=== PATIENT | male | born 1970 | race Caucasian/White ===

== ENCOUNTER 2017-10-20 10:10 | Outpatient (CLI) | payer OTHER ==
[2017-10-20 11:00] LABS: Hemoglobin 16.5 g/dL (14.0-18.0)
[2017-10-20 11:18] LABS: Anion Gap 10 mmol/L (10-20); BUN (Urea Nitrogen) 16 mg/dL (8.9-20.6); Calc. Creatinine Clearance 0 mL/min (70-130); Calcium 9.9 mg/dL (7.8-10.44); Carbon Dioxide 27 mmol/L (22-29); Chloride 104 mmol/L (98-107); Estimated GFR-MDRD 79; Glucose 86 mg/dL (70-105); Potassium 4.5 mmol/L (3.5-5.1); Sodium 136 mmol/L (136-145)
--- NOTE | 2017-10-24 08:46 | EKG ---
Test Reason : Blood Pressure : / mmHG Vent. Rate : 053 BPM Atrial Rate : 053 BPM P-R Int : 168 ms QRS Dur : 080 ms QT Int : 380 ms P-R-T Axes : 040 036 012 degrees QTc Int : 356 ms Sinus bradycardia Anterior infarct , age undetermined Abnormal ECG No previous ECGs available Confirmed by MARCUS HERNÁNDEZ, AISLINN ([id number]) on 10/24/2017 8:46:14 AM Referred By: PARISA Confirmed By:AISLINN VELAZQUEZ MD
== END 2017-10-20 10:11 | disposition home or self-care (01) ==
LOC: LABBT 10:10
PROVIDERS: ATTEND Orthopaedic Surgery
DX: Z01.818 Encounter for other preprocedural examination (principal); M23.92 Unspecified internal derangement of left knee
CPT/HCPCS: 80048; 85014; 85018; 93005; 93010

== ENCOUNTER 2017-10-27 09:24 | Day surgery (SDC) | payer OTHER ==
[2017-10-20 10:32] VITALS: BMI 27.7
[2017-10-27] MEDS ORDERED: PROPOFOL 20 ML ONE (09:45)
[2017-10-27] MEDS ORDERED: Clindamycin/D5W 600 mg/50 ml Premix Bag ONE (10:31)
[2017-10-27] MEDS ORDERED: Fentanyl 100 MCG/2 ML VIAL ONE (10:58)
[2017-10-27] MEDS ORDERED: Bupivacaine HCl 0.5%/Epinephrine 1:200,000/PF 30 ml Vial ONE (11:35)
[2017-10-27] MEDS ORDERED: Lidocaine 2% w/Epinephrine 1:200K 20 ML VIAL ONE (11:35)
[2017-10-27] MEDS ORDERED: PROPOFOL 200 MG/20 ML VIAL ONE (12:13)
[2017-10-27] MEDS ORDERED: Lidocaine 1% PF 5 ML VIAL ONE (12:13)
[2017-10-27] MEDS ORDERED: Ketorolac Tromethamine 30 MG/ML VIAL ONE (12:13)
--- NOTE | 2017-10-28 13:08 | OP ---
DATE OF SERVICE: 10/27/2017 PREOPERATIVE DIAGNOSIS: Right knee multiple cartilaginous loose bodies. POSTOPERATIVE DIAGNOSIS: Right knee gout with several gouty tophi in the knee. PROCEDURES: Knee arthroscopy, debridement and shaving. SURGEON: Lebron Dixon M.D. BLOOD LOSS: Minimal. COMPLICATIONS: None. ANESTHESIA: The patient had a general with local block. He did go to the recovery room in stable co ndition. INDICATIONS: Derrick is 47, who had extreme pain in the knee. 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 He was t aken to the operating room for this. DESCRIPTION OF PROCEDURE: After all appropriate consent forms were explained and signed, the patient was taken back to the operating room and at this time was given general anesthetic. Once the level of anesthesia was appropriate, the tourniquet was placed on the thigh and the thigh was placed arthro scopic leg mishra. He was then prepped and draped in standard surgical fashion. Limb was exsanguina meghan and the tourniquet was taken up to 300 mmHg. An inferolateral portal was established and the sco pe was placed into the joint. A needle localization technique was then used to make a medial working portal. Diagnostic arthroscopy commenced in the notch. The notch had multiple loose bodies includi ng what appeared to be gouty tophi. They were throughout the notch, there in between the ACL and PCL , and I removed as much of this is feasible throughout the knee. The medial compartment showed the f emur and the tibia to have significant gouty changes with imbedded crystals. The meniscus was intact . There was a small gouty tophi was noted to be underneath the medial meniscus. The lateral compart ment was more of the same again with a small gouty tophi located underneath the lateral meniscus. Th e gutters were swept through and debrided. I also debrided a large gouty tophus behind the lateral f emoral condyle pushing the ACL of the way also debrided behind the medial femoral condyle. The caputo lofemoral joint was also found to have significant gouty tophi and this was taken care of as well. A t this time, with the scope through the knee. Another time thoroughly irrigating and washing out any crystalline structures or any loose structures. Until we got to the point where there was no signif icant gouty tophi left. Once this was done, the scope was removed, knee was drained and each portal was closed with nylon stitch. At this time, a bulky sterile dressing was applied and the tourniquet let down. Toes pinked up nicely. The patient was awakened and taken to the recovery room in stable condition. All counts were correct at the end of the case and he did receive preoperative IV antibio tics.
== END 2017-10-27 13:20 | disposition home or self-care (01) ==
LOC: SDC 09:24
PROVIDERS: ATTEND Orthopaedic Surgery
PROC: 0SBC4ZZ Excision of Right Knee Joint, Percutaneous Endoscopic Approach (ICD-10-PCS; principal; 2017-10-27)
DX: M1A.0611 Idiopathic chronic gout, right knee, with tophus (tophi) (principal); I10 Essential (primary) hypertension; Z79.82 Long term (current) use of aspirin; Z79.899 Other long term (current) drug therapy; Z88.0 Allergy status to penicillin; Z86.73 Personal history of transient ischemic attack (TIA), and cerebral infarction without residual deficits
CPT/HCPCS: G8978-GP-CL; G8979-GP-CL; G8980-GP-CL; J0670; J1885; J2001; J2704; J3010; J3490

== ENCOUNTER 2018-08-17 07:08 | Day surgery (SDC) | payer OTHER ==
[2018-08-16 14:50] VITALS: BMI 28.5
[2018-08-17] MEDS ORDERED: Midazolam HCl 2 mg/2 ml Vial ONE ×2 (08:06→08:53)
[2018-08-17] MEDS ORDERED: Fentanyl 100 MCG/2 ML VIAL ONE ×2 (08:06→08:53)
[2018-08-17] MEDS ORDERED: Clindamycin/D5W 600 mg/50 ml Premix Bag ONE (08:31)
[2018-08-17] MEDS ORDERED: HYDROcodone/Acetaminophen 10/325 mg Tablet PO PRN ×2 (09:07)
[2018-08-17] MEDS ORDERED: traMADol HCl 50 MG TAB PO PRN ×2 (09:07)
[2018-08-17] MEDS ORDERED: Promethazine HCl 25 MG/ML VIAL IM PRN (09:07)
[2018-08-17] MEDS ORDERED: Zolpidem Tartrate 5 MG TAB PO PRN (09:07)
[2018-08-17] MEDS ORDERED: Ondansetron PF 4 MG/2 ML Vial IVP PRN (09:07)
[2018-08-17] MEDS ORDERED: Ropivacaine 0.2% 550 ML 550 ML NERVE BLCK SCH (09:07)
[2018-08-17] MEDS ORDERED: Fentanyl 100 MCG/2 ML VIAL IV PRN (09:08)
--- NOTE | 2018-08-17 10:55 | OP ---
DATE OF PROCEDURE: 08/17/2018 PREOPERATIVE DIAGNOSIS: Left Achilles tendon rupture. POSTOPERATIVE DIAGNOSIS: Left Achilles tendon rupture. PROCEDURES PERFORMED: 1. Open repair of left Achilles tendon rupture. 2. Short-leg splint. PRESS HELPER: Filippo Prescott PA-C. BLOOD LOSS: Minimal. COMPLICATIONS: None. ANESTHESIA: He did have a general anesthetic as well as a preoperative block. IMPLANTS: There were no implants other than sutures. DISPOSITION: He did go to recovery room in stable condition. INDICATIONS: This is a 48-year-old male, who was playing hoops this weekend when he felt a pop and was unable to push off. He was seen in clinic and determined to have a full-thickness Achilles tendon rupture. At this time, he is presenting for repair. He had a short leg posterior splint placed to the left lower extremity. DESCRIPTION OF PROCEDURE: After verbal consent forms were explained and signed, he was taken back to the operative room and at this time was given a general anesthetic. Once the level of anesthesia was appropriate, he was rolled into the prone position with all bony prominences well padded. A tourniquet had been placed onto the left distal thigh. At this time, the left lower extremity was then prepped and draped in standard surgical fashion. The limb was then exsanguinated and the tourniquet was taken up to 300 mmHg. A 10-blade was then used to cut down through skin only. The Bovie was used to coagulate any brisk venous bleeding. New blade was used to take paratenon off the underlying Achilles tendon and at this time, blood and clot were noted around the ruptured area. We were then able to separate the two ends. We then took #2 Orthocord and ran it in [place] fashion from the ruptured portion distal and then back proximal for the one segment and then proximal and then back distal for the second segment and these two knots were tied in the middle and buried. We then ran 0 Vicryl suture circumferentially around this to give this extra strength. Once this was done, we had nice resting length of our Achilles. Zhang test was negative at this time. We then thoroughly irrigated and dried. We then did run another Vicryl to close our paratenon, some 3-0 Vicryl followed by Prolene sutures were then used to close the skin. Bulky sterile soft tissue dressing was applied and a short posterior splint was also placed on the extremity. He was then awakened. He was taken to recovery room in stable condition. All counts were correct at the end of the case and he did receive preoperative IV antibiotics. Job ID: [id number]
[2018-08-17] MEDS ORDERED: Bupivacaine HCl 0.5%/Epinephrine 1:200,000/PF 30 ml Vial ONE (13:06)
[2018-08-17] MEDS ORDERED: Ropivacaine 0.2% HCl/PF (40 MG/20 ML VIAL) ONE (13:06)
[2018-08-17] MEDS ORDERED: Ondansetron PF 4 MG/2 ML Vial ONE (13:19)
[2018-08-17] MEDS ORDERED: PROPOFOL 200 MG/20 ML VIAL ONE (13:19)
[2018-08-17] MEDS ORDERED: ePHEDrine 50 MG/ML VIAL ONE (13:19)
[2018-08-17] MEDS ORDERED: PHENYLEPHRINE-NS 100 MCG/ML 10 ML SYRINGE ONE (13:19)
[2018-08-17] MEDS ORDERED: Lidocaine 1% PF 5 ML VIAL ONE (13:19)
[2018-08-17] MEDS ORDERED: Ketorolac Tromethamine 30 MG/ML VIAL ONE (13:19)
[2018-08-17] MEDS ORDERED: Glycopyrrolate 0.2 MG/ML 5 ML SYRINGE ONE (13:19)
[2018-08-17] MEDS ORDERED: Rocuronium Bromide 10 MG/ML (10ML VIAL) ONE (13:19)
== END 2018-08-17 11:55 | disposition home or self-care (01) ==
LOC: SDC 07:08
PROVIDERS: ATTEND Orthopaedic Surgery
PROC: 0LQP0ZZ Repair Left Lower Leg Tendon, Open Approach (ICD-10-PCS; principal; 2018-08-17)
DX: S86.012A Strain of left Achilles tendon, initial encounter (principal); M10.9 Gout, unspecified; Z86.73 Personal history of transient ischemic attack (TIA), and cerebral infarction without residual deficits; Z79.82 Long term (current) use of aspirin; Z79.899 Other long term (current) drug therapy; Z88.0 Allergy status to penicillin; Y93.67 Activity, basketball
CPT/HCPCS: 93005; 93010; A4306; J2250; J2795; J3010; J3490

== ENCOUNTER 2018-09-10 10:29 | Inpatient (IN) | payer OTHER ==
[2018-09-10] MEDS ORDERED: Heparin 25,000 units/D5W 500 ML ONE (10:58)
--- NOTE | 2018-09-10 11:14 | RAD ---
SINGLE VIEW OF THE CHEST: COMPARISON: None. HISTORY: Dyspnea. FINDINGS: Single view of the chest shows a normal sized cardiomediastinal silhouette. There is no evidence of c onsolidation, mass, or pleural effusion. The bones are unremarkable. IMPRESSION: No evidence of acute cardiopulmonary disease. POS: [facility]
[2018-09-10 11:31] LABS: INR-International Normal Ratio 1.4; Prothrombin Time 16.9 SEC (12.0-14.7)
[2018-09-10 11:32] LABS: #Eosinphils 0.1 thou/uL (0.0-0.7); #Monocytes 1.2 thou/uL (0.11-0.59); #Neutrophils 17.6 thou/uL (1.40-6.50); %Basophils 0.2 % (0.0-1.0); %Eosinophils 0.3 % (0.0-10.0); %Lymphocytes 5.2 % (21.0-51.0); %Neutrophils 88.4 % (42.0-75.0); Hemoglobin 16.8 g/dL (14.0-18.0); Mean Corpuscular HGB CONC 32.5 g/dL (32.0-36.0); Mean Corpuscular Volume 89.4 fL (78.0-98.0); Mean Platelet Volume 8.1 fL (7.4-10.4); PTT 45.6 SEC (22.9-36.1); Platelet Count 265 thou/uL (130-400); RBC Distribution Width 12.9 % (11.5-14.5); Red Blood Cell (RBC) Count 5.78 mill/uL (4.70-6.10); White Blood Cell (WBC) Count 19.9 thou/uL (4.8-10.8)
[2018-09-10 11:42] LABS: ALT (SGPT) 83 U/L (8-55); AST (SGOT) 51 U/L (5-34); Albumin 4.1 g/dL (3.5-5.0); Alkaline Phosphatase 95 U/L (40-150); Anion Gap 14 mmol/L (10-20); BUN (Urea Nitrogen) 19 mg/dL (8.9-20.6); Bilirubin, Total 0.7 mg/dL (0.2-1.2); CK (CPK) 64 U/L (30-200); Calc. Creatinine Clearance 0 mL/min (70-130); Calcium 9.5 mg/dL (7.8-10.44); Carbon Dioxide 20 mmol/L (22-29); Chloride 106 mmol/L (98-107); Estimated GFR-MDRD 69; Globulin 2.6 g/dL (2.4-3.5); Glucose 97 mg/dL (70-105); Lipase 41 U/L (8-78); Potassium 4.4 mmol/L (3.5-5.1); Protein, Total 6.7 g/dL (6.0-8.3); Sodium 136 mmol/L (136-145)
[2018-09-10 12:07] LABS: CKMB 2.4 ng/mL (0-6.6)
[2018-09-10 14:17] VITALS: BMI 28.0
--- NOTE | 2018-09-10 14:58 | CON ---
DATE OF CONSULTATION: HISTORY OF PRESENT ILLNESS: Derrick Perez is a 48-year-old pleasant gentleman, who had 08/17/2018, repair of his left Achilles tendon. He is doing well. It is about 3-1/2 weeks post surgery. He then presents to the ER after at home while he woke up to take a shower became lightheaded, dizzy, and shortness of breath. In fact, he got nauseated. He normally takes blood pressure medication, but the blood pressure was in the 90s. He is hypoxic, taken to the ER where CT angio shows extensive bilateral pulmonary emboli including saddle embolus. He was given tPA as per protocol in [place], [place], apparently 10 mg IV and then 40 mg over 2 hours. He was transferred to [facility]. On arrival, he appears to be in no distress. He says he feels much better. No previous history of DVT or PE. PAST MEDICAL HISTORY: Pertinent for hypertension, previous apparently TIA, and hypertension. PAST SURGICAL HISTORY: Right knee surgery done. ALLERGIES: PENICILLIN. 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 Tobacco, none. Alcohol, none. REVIEW OF SYSTEMS: Otherwise, 10-point negative. PHYSICAL EXAMINATION: VITAL SIGNS: His sats are 98%, pulse 110, blood pressure and respiratory rate 18. CHEST: No wheezing or crackles. CARDIAC: Normal S1 and S2. No gallops. ABDOMEN: No masses. EXTREMITIES: His left leg has a cast, but appears to be quite soft. LABORATORY DATA: White count 19,000, hemoglobin and hematocrit of 16 and 51, platelet count is normal. INR is 4. Lytes are normal. Troponin is 0.52. DIAGNOSTIC DATA: X-ray was normal. IMPRESSION: 1. Pulmonary emboli. 2. Hypertension. 3. Gout. 4. Arthritis. 5. Allergy to penicillin. PLAN: He is started on IV heparin. We will switch him over to Lovenox for 24 to 48 hours, then eventually Eliquis. We will follow. Consultation note, 70 minutes, 50% direct patient care. Job ID: [id number]
[2018-09-10] MEDS: Acetaminophen 325 MG TAB PO PRN (15:00)
[2018-09-10] MEDS ORDERED: Heparin 10,000 UNITS/ 10 ML VIAL SLOW IVP SCH (15:15)
[2018-09-10] MEDS ORDERED: Heparin 25,000 units/D5W 500 ML IV SCH (15:15)
--- NOTE | 2018-09-10 17:08 | HP ---
CHIEF COMPLAINT: Shortness of breath. HISTORY OF PRESENT ILLNESS: This patient is a 48-year-old male in generally good health with some underlying gout and a mild hypertension. The patient initially presented to the [facility] with complaint of shortness of breath. This patient recently had a ruptured Achilles tendon as a result of playing basketball. The patient had surgery on August 17 and 2 weeks ago, had sutures out in a cast placed. The patient's daughter was leaving from [place] to go to [facility] for deployment and he took a road trip up there to bid her farewell. He was prescribed Lovenox injections, however, he reports that the 2nd one he took was painful. Therefore, he did not take any more of them. Today, the patient reports that he felt a little short of breath for couple of days, but today became more profoundly short of breath and had some chest discomfort. He presented to the [facility] where he was found to have pulse of 124, BP 99/76, and O2 saturation of 86%. He underwent a CT scan of the chest which revealed bilateral pulmonary emboli with multiple large pulmonary emboli in the pulmonary arteries with evidence of right heart overload. EKG showed sinus tach at 124 beats per minute. The patient was felt to have significant cardiopulmonary compromise and was given a tPA bolus and was subsequently started on tPA infusion and transferred to this facility. The patient reports that he is actually feeling somewhat better at this point. His chest pain and discomfort have really eased and his breathing is more comfortable as well. REVIEW OF SYSTEMS: All systems were reviewed and all pertinent positives and negatives noted in the history of present illness. PAST MEDICAL HISTORY: Gout, mild hypertension, history of TIA in 2005. PAST SURGICAL HISTORY: Left knee surgery for gout related issues and an umbilical hernia repair remotely. Also had Achilles tendon rupture that was repaired on August 17 as stated above. FAMILY HISTORY: Mother had hypertension. Father had hypertension and diabetes. MEDICATIONS: Allopurinol and lisinopril. The patient does not know the doses. ALLERGIES: PENICILLIN. SOCIAL HISTORY: No alcohol, tobacco, or drugs. The patient is full code. His would be his surrogate decision maker. PHYSICAL EXAMINATION: VITAL SIGNS: Currently, BP 142/94, pulse is down to about 106, respirations 20 , O2 saturation 94% on 4 L nasal cannula. GENERAL APPEARANCE: Age-appropriate male. He is in no distress. He is comfortable, awake, alert, and has nasal cannula oxygen in place. HEENT: PERRL. No OP lesions. HEART: Regular without murmurs. LUNGS: Clear to auscultation bilaterally. ABDOMEN: Soft, nontender, and nondistended. Positive bowel sounds. No masses. No organomegaly. EXTREMITIES: Warm and dry with no edema. The left lower extremity is in a cast covering the ankle to mid calf. There is no tenderness about that. IMAGING: Chest x-ray report from here shows no acute cardiopulmonary disease. LABORATORY DATA: Labs here, white count 19.9, hemoglobin 16.8. PT 16.9, INR is 1.4, PTT 45.6. Sodium 136, potassium 4.4, chloride 106, CO2 is 20, BUN 19, creatinine is 1.14, glucose 97. AST 51, ALT 83, alkaline phosphatase 95. Troponin 0.520. BNP 15. Albumin 4.1, lipase 41. IMPRESSION AND PLAN: 1. Bilateral pulmonary emboli. The patient reported some mild shortness of breath for the last couple days concerning for the possibility that he may have had some type of saddle emboli that ultimately has led to bilateral pulmonary artery emboli. The patient has received a tPA bolus and infusion and is now on a heparin drip. His vital signs are starting to improve a bit. He will be admitted to the intensive care unit. Pulmonary and Critical Care will be consulted to assist with further evaluation. We will maintain supplemental oxygen as needed for maintaining oxygen saturations. 2. Acute hypoxic respiratory failure. Sats in the mid 80's requiring supplemental oxygen. 3. Leukocytosis, likely demargination secondary to stress or the PE. 4. Elevated troponin, likely due to right heart distention from the pulmonary artery pressures. 5. Elevated liver enzymes, likely related to the liver congestion from right heart strain, right ventricular strain. 6. History of hypertension. The patient can go back on his lisinopril once it is established that he will be more hemodynamically stable. 7. History of gout. Again, allopurinol could be resumed at some point once his dose is established. Job ID: [id number] [facility]
[2018-09-10 17:55] LABS: Troponin I 1.033 ng/mL (< 0.028)
[2018-09-10] MEDS ORDERED: Heparin 10,000 UNITS/ 10 ML VIAL ONE ×3 (18:00)
[2018-09-10] MEDS: Famotidine 20 MG TAB PO SCH (21:20)
[2018-09-10 21:21] LABS: Critical Call Chem Troponin I DECREASED; Troponin I 0.684 ng/mL (< 0.028)
[2018-09-11] MEDS: Famotidine 20 MG TAB PO SCH ×2 (09:20→21:42)
--- NOTE | 2018-09-11 09:52 | PDOC.PN ---
- Subjective Encounter Start Date: 09/11/18 Encounter Start Time: 09:50 Patient seen and examined. No new complaints. No overnight events. feeling good and no sob reported. No hemoptysis. No bleeding reported. No abd pain or n/v. - Objective Resuscitation Status - Order Detail: 09/10/18 12:51 Resuscitation Status Routine Resuscitation Status: FULL: Full Resuscitation Discussed with: patient MAR Reviewed: Yes Vital Signs & Weight: Vital Signs (12 hours) Temp 09/11/18 04:00 98.6 F 09/11/18 00:00 98.2 F Weight Weight 212 lb 8.41 oz Most Recent Monitor Data Heart Rate from ECG 83 NIBP 101/73 NIBP BP-Mean 82 Respiration from ECG 18 SpO2 96 I&O: 09/10/18 09/11/18 09/12/18 05:59 06:59 06:59 Intake Total Output Total Balance Result Diagrams: 09/10/18 11:06 09/10/18 11:06 Radiology Reviewed by me: Yes (cxr reviewed) Phys Exam - Physical Examination Constitutional: NAD HEENT: sclera anicteric Neck: supple Respiratory: no wheezing, no rales Cardiovascular: RRR Gastrointestinal: soft Musculoskeletal: no edema Neurological: non-focal, moves all 4 limbs Psychiatric: normal affect, A&O x 3 Dx/Plan (1) Pulmonary embolism Code(s): I26.99 - OTHER PULMONARY EMBOLISM WITHOUT ACUTE COR PULMONALE Status : Acute (2) HTN (hypertension) Code(s): I10 - ESSENTIAL (PRIMARY) HYPERTENSION Status: Acute (3) Gout Code(s): M10.9 - GOUT, UNSPECIFIED Status: Acute (4) Acute respiratory failure with hypoxia Code(s): J96.01 - ACUTE RESPIRATORY FAILURE WITH HYPOXIA Status: Acute (5) Tachycardia Code(s): R00.0 - TACHYCARDIA, UNSPECIFIED Status: Acute (6) Elevated troponin Code(s): R74.8 - ABNORMAL LEVELS OF OTHER SERUM ENZYMES Status: Acute (7) Elevated liver enzymes Code(s): R74.8 - ABNORMAL LEVELS OF OTHER SERUM ENZYMES Status: Acute (8) Right heart enlargement Code(s): I51.7 - CARDIOMEGALY Status: Acute - Plan cont current plan of care, plan discussed w/ family * . continue heparin f/u with pulmonology. No sob or hypoxia. No signs of bleeding AM labs.
--- NOTE | 2018-09-11 10:30 | PRG ---
DATE OF SERVICE: 09/11/2018 SUBJECTIVE: This morning, he is awake, alert, and responsive. OBJECTIVE: VITAL SIGNS: His saturations are 100% on 2 L, blood pressure 101/70, respiratory rate 18, afebrile. CHEST: Decreased breath sounds. No wheezing. CARDIAC: Normal S1, S2. No gallops or masses. LABORATORY DATA: His creatinine is 1.14. His white count is slightly elevated at 19,000. The left leg appears to be appropriate. IMPRESSION: Status post massive pulmonary emboli, recent left leg surgery. I am going to switch him over to Lovenox 1 mg/kg subcu q.12. Discontinue heparin. Continue PT. He can probably be transferred out of the ICU. Job ID: [id number]
[2018-09-11 12:31] LABS: #Eosinphils 0.3 thou/uL (0.0-0.7); #Lymphocytes 1.3 thou/uL (1.20-3.40); #Monocytes 0.6 thou/uL (0.11-0.59); #Neutrophils 8.6 thou/uL (1.40-6.50); %Basophils 0.3 % (0.0-1.0); %Eosinophils 2.6 % (0.0-10.0); %Lymphocytes 11.8 % (21.0-51.0); %Monocytes 5.8 % (0.0-10.0); %Neutrophils 79.5 % (42.0-75.0); Hemoglobin 16.1 g/dL (14.0-18.0); Mean Corpuscular HGB CONC 32.7 g/dL (32.0-36.0); Mean Corpuscular Volume 91.7 fL (78.0-98.0); Mean Platelet Volume 8.3 fL (7.4-10.4); Platelet Count 207 thou/uL (130-400); Red Blood Cell (RBC) Count 5.39 mill/uL (4.70-6.10); White Blood Cell (WBC) Count 10.8 thou/uL (4.8-10.8)
[2018-09-11 12:42] LABS: Anion Gap 12 mmol/L (10-20); BUN (Urea Nitrogen) 16 mg/dL (8.9-20.6); Calc. Creatinine Clearance 132 mL/min (70-130); Carbon Dioxide 24 mmol/L (22-29); Chloride 104 mmol/L (98-107); Estimated GFR-MDRD 87; Glucose 111 mg/dL (70-105); Potassium 4.2 mmol/L (3.5-5.1); Sodium 136 mmol/L (136-145)
[2018-09-11] MEDS ORDERED: Mag-Al 1200 mg/1200 mg/30 ML UDCUP PO PRN (21:08)
[2018-09-11] MEDS ORDERED: Calcium Carbonate 500 MG ChewTAB PO PRN (21:08)
[2018-09-11] MEDS ORDERED: traMADol HCl 50 MG TAB PO SCH (21:15)
[2018-09-11] MEDS: Enoxaparin Sodium 100 MG/ML SYRINGE SC SCH (21:44)
[2018-09-12 06:20] LABS: #Basophils 0.1 thou/uL (0.0-0.2); #Eosinphils 0.3 thou/uL (0.0-0.7); #Lymphocytes 1.4 thou/uL (1.20-3.40); #Monocytes 0.9 thou/uL (0.11-0.59); #Neutrophils 7.7 thou/uL (1.40-6.50); %Basophils 0.6 % (0.0-1.0); %Eosinophils 2.9 % (0.0-10.0); %Lymphocytes 13.6 % (21.0-51.0); %Monocytes 8.7 % (0.0-10.0); %Neutrophils 74.2 % (42.0-75.0); Hemoglobin 16.3 g/dL (14.0-18.0); Mean Corpuscular HGB CONC 30.3 g/dL (32.0-36.0); Mean Corpuscular Hemoglobin 28.1 pg (27.0-31.0); Mean Corpuscular Volume 92.7 fL (78.0-98.0); Mean Platelet Volume 8.2 fL (7.4-10.4); Platelet Count 180 thou/uL (130-400); RBC Distribution Width 13.2 % (11.5-14.5); Red Blood Cell (RBC) Count 5.78 mill/uL (4.70-6.10); White Blood Cell (WBC) Count 10.4 thou/uL (4.8-10.8)
[2018-09-12] MEDS ORDERED: traMADol HCl 50 MG TAB PO SCH ×2 (06:45→21:00)
[2018-09-12 06:50] LABS: Anion Gap 13 mmol/L (10-20); Calc. Creatinine Clearance 134 mL/min (70-130); Calcium 8.5 mg/dL (7.8-10.44); Carbon Dioxide 18 mmol/L (22-29); Chloride 105 mmol/L (98-107); Estimated GFR-MDRD 88; Potassium 4.6 mmol/L (3.5-5.1); Sodium 131 mmol/L (136-145)
[2018-09-12 07:02] LABS: BUN (Urea Nitrogen) 16 mg/dL (8.9-20.6); Glucose 95 mg/dL (70-105)
[2018-09-12] MEDS: Enoxaparin Sodium 100 MG/ML SYRINGE SC SCH ×2 (08:50→20:13)
[2018-09-12] MEDS: Famotidine 20 MG TAB PO SCH ×2 (08:50→20:13)
--- NOTE | 2018-09-12 11:40 | PRG ---
DATE OF SERVICE: 09/12/2018 SUBJECTIVE: This morning, he is doing better. He said his gout is acting up. OBJECTIVE: VITAL SIGNS: His saturations are 93% on 2 L, temperature 98, pulse 90, and blood pressure 138/88. CHEST: No wheezing or crackles. CARDIAC: Normal S1 and S2. No gallops. ABDOMEN: No masses. LABORATORY DATA: Unremarkable. IMPRESSION AND PLAN: Pulmonary embolism, status post left leg surgery. He is on Lovenox. Switch him over to Eliquis tomorrow. Restart home gout medication. We will follow. Job ID: [id number]
[2018-09-12] MEDS: Acetaminophen 325 MG TAB PO PRN ×3 (12:17→23:47)
--- NOTE | 2018-09-12 14:29 | PDOC.PN ---
- Subjective Encounter Start Date: 09/12/18 Encounter Start Time: 14:27 Subjective: Feeling a lot better. Off oxygen -: S/p tPA for bilateral PE with cardiopulmonary compromise. - Objective Resuscitation Status - Order Detail: 09/10/18 12:51 Resuscitation Status Routine Resuscitation Status: FULL: Full Resuscitation Discussed with: patient Vital Signs & Weight: Vital Signs (12 hours) Temp Pulse Pulse Pulse Resp BP BP 09/12/18 12:11 97.3 F L 88 17 09/12/18 10:01 89 99 124/83 134/88 09/12/18 08:42 98 F 90 16 09/12/18 04:00 98.2 F 87 18 BP Pulse Ox Pulse Ox 09/12/18 12:11 126/92 H 95 09/12/18 10:01 95 09/12/18 08:42 124/78 93 L 09/12/18 04:00 144/66 H 96 Weight Weight 154 lb 9.586 oz Most Recent Monitor Data Heart Rate from ECG 80 NIBP 109/71 NIBP BP-Mean 83 Respiration from ECG 19 SpO2 96 I&O: 09/11/18 09/12/18 09/13/18 06:59 06:59 06:59 Intake Total 1342 Output Total 1125 Balance 217 Result Diagrams: 09/12/18 06:13 09/12/18 06:13 Phys Exam - Physical Examination HEENT: PERRLA, moist MMs Neck: no JVD, supple, full ROM Respiratory: no wheezing, no rales, no rhonchi Cardiovascular: RRR, no significant murmur, no rub Gastrointestinal: soft, non-tender, no distention, positive bowel sounds Musculoskeletal: no edema, pulses present Left foot and leg covered with cast Neurological: non-focal, moves all 4 limbs Psychiatric: normal affect, A&O x 3 Dx/Plan (1) Acute cor pulmonale Code(s): I26.09 - OTHER PULMONARY EMBOLISM WITH ACUTE COR PULMONALE Status: Acute (2) Acute respiratory failure with hypoxia Code(s): J96.01 - ACUTE RESPIRATORY FAILURE WITH HYPOXIA Status: Acute (3) Elevated liver enzymes Code(s): R74.8 - ABNORMAL LEVELS OF OTHER SERUM ENZYMES Status: Acute (4) Elevated troponin Code(s): R74.8 - ABNORMAL LEVELS OF OTHER SERUM ENZYMES Status: Acute (5) Gout Code(s): M10.9 - GOUT, UNSPECIFIED Status: Acute (6) HTN (hypertension) Code(s): I10 - ESSENTIAL (PRIMARY) HYPERTENSION Status: Acute (7) Pulmonary embolism Code(s): I26.99 - OTHER PULMONARY EMBOLISM WITHOUT ACUTE COR PULMONALE Status : Acute (8) Right heart enlargement Code(s): I51.7 - CARDIOMEGALY Status: Acute (9) Tachycardia Code(s): R00.0 - TACHYCARDIA, UNSPECIFIED Status: Acute - Plan Continue Lovenox anticoagulation -: increase activity -: get echo -: monitor patient off oxygen -: Appreciate Pulmonary input. * .
[2018-09-12] MEDS: Allopurinol 300 MG TAB PO SCH (20:13)
[2018-09-12] MEDS: Colchicine 0.6 MG TAB PO SCH (21:44)
[2018-09-13] MEDS ORDERED: Ketorolac Tromethamine 30 MG/ML VIAL IVP SCH (07:00)
[2018-09-13 08:00] LABS: ALT (SGPT) 31 U/L (8-55); AST (SGOT) 31 U/L (5-34); Albumin 3.8 g/dL (3.5-5.0); Alkaline Phosphatase 83 U/L (40-150); Anion Gap 12 mmol/L (10-20); BUN (Urea Nitrogen) 15 mg/dL (8.9-20.6); Bilirubin, Total 0.8 mg/dL (0.2-1.2); Calc. Creatinine Clearance 80 mL/min (70-130); Calcium 9.3 mg/dL (7.8-10.44); Carbon Dioxide 27 mmol/L (22-29); Chloride 101 mmol/L (98-107); Estimated GFR-MDRD 70; Glucose 96 mg/dL (70-105); Potassium 4.8 mmol/L (3.5-5.1); Protein, Total 6.8 g/dL (6.0-8.3); Sodium 135 mmol/L (136-145)
[2018-09-13] MEDS: Allopurinol 300 MG TAB PO SCH ×2 (08:43→20:45)
[2018-09-13] MEDS: Enoxaparin Sodium 100 MG/ML SYRINGE SC SCH (08:43)
[2018-09-13] MEDS: Famotidine 20 MG TAB PO SCH ×2 (08:43→20:45)
[2018-09-13] MEDS: Colchicine 0.6 MG TAB PO SCH ×2 (08:43→20:45)
--- NOTE | 2018-09-13 10:49 | PRG ---
DATE OF SERVICE: 09/13/2018 SUBJECTIVE: He is complaining of some vague left-sided chest pain. He still thinks that his gout is acting up. OBJECTIVE: VITAL SIGNS: His saturations are 95% on room air, respiratory rate 19, temperature 98, blood pressure 133/84. CHEST: Decreased breath sounds. No wheezing. CARDIAC: Normal S1 and S2. No gallops. ABDOMEN: No masses. IMPRESSION: Status post PE, status post tPA. PLAN: I am going to switch him over to Eliquis. Chest x-ray today. Hopefully, disposition home tomorrow. Job ID: [id number]
--- NOTE | 2018-09-13 11:38 | RAD ---
TWO VIEWS CHEST: Comparison: 09-10-18 History: Pulmonary embolism and dyspnea. FINDINGS: Two views of the chest show normal sized cardiomediastinal silhouette. There is no evidence of consol idation, mass, or pleural effusion. The bones are unremarkable. IMPRESSION: No evidence of acute cardiopulmonary disease. POS: [facility]
--- NOTE | 2018-09-13 13:33 | PDOC.PN ---
- Subjective Encounter Start Date: 09/13/18 Encounter Start Time: 13:31 Subjective: Had epsisode of pleuriticchest pain earlier today. Remained afebrile -: No new problem - Objective Resuscitation Status - Order Detail: 09/10/18 12:51 Resuscitation Status Routine Resuscitation Status: FULL: Full Resuscitation Discussed with: patient Vital Signs & Weight: Vital Signs (12 hours) Temp Pulse Resp BP BP Pulse Ox 09/13/18 11:33 98.1 F 89 18 133/80 95 09/13/18 07:00 98.0 F 93 19 133/84 95 09/13/18 04:00 98.0 F 78 18 122/75 94 L Weight Weight 154 lb 9.586 oz Most Recent Monitor Data Heart Rate from ECG 80 NIBP 109/71 NIBP BP-Mean 83 Respiration from ECG 19 SpO2 96 I&O: 09/12/18 09/13/18 09/14/18 06:59 06:59 06:59 Intake Total 1342 1540 Output Total 1125 1145 Balance 217 395 Result Diagrams: 09/12/18 06:13 09/13/18 06:57 Phys Exam - Physical Examination HEENT: PERRLA, moist MMs Neck: no JVD, supple, full ROM Respiratory: no wheezing, no rales, no rhonchi Cardiovascular: RRR, no significant murmur Gastrointestinal: soft, non-tender, no distention, positive bowel sounds Musculoskeletal: no edema Left leg.foot cast noted Neurological: non-focal, moves all 4 limbs Psychiatric: normal affect, A&O x 3 Dx/Plan (1) Acute cor pulmonale Code(s): I26.09 - OTHER PULMONARY EMBOLISM WITH ACUTE COR PULMONALE Status: Acute (2) Acute respiratory failure with hypoxia Code(s): J96.01 - ACUTE RESPIRATORY FAILURE WITH HYPOXIA Status: Acute (3) Elevated liver enzymes Code(s): R74.8 - ABNORMAL LEVELS OF OTHER SERUM ENZYMES Status: Acute (4) Elevated troponin Code(s): R74.8 - ABNORMAL LEVELS OF OTHER SERUM ENZYMES Status: Acute (5) Gout Code(s): M10.9 - GOUT, UNSPECIFIED Status: Acute (6) HTN (hypertension) Code(s): I10 - ESSENTIAL (PRIMARY) HYPERTENSION Status: Acute (7) Pulmonary embolism Code(s): I26.99 - OTHER PULMONARY EMBOLISM WITHOUT ACUTE COR PULMONALE Status : Acute (8) Right heart enlargement Code(s): I51.7 - CARDIOMEGALY Status: Acute (9) Tachycardia Code(s): R00.0 - TACHYCARDIA, UNSPECIFIED Status: Acute - Plan Hold discharge given transient pleuritic chest asrecommended by Pulmonary -: Started on eliquis. -: Contoinue other treatments. * .
[2018-09-13] MEDS: Acetaminophen 325 MG TAB PO PRN ×2 (15:08→20:45)
[2018-09-13] MEDS: Apixaban 5 MG TAB PO SCH (20:45)
[2018-09-14] MEDS: Acetaminophen 325 MG TAB PO PRN (02:27)
[2018-09-14] MEDS: Colchicine 0.6 MG TAB PO SCH (09:32)
[2018-09-14] MEDS: Allopurinol 300 MG TAB PO SCH (09:32)
[2018-09-14] MEDS: Famotidine 20 MG TAB PO SCH (09:32)
[2018-09-14] MEDS: Apixaban 5 MG TAB PO SCH (09:32)
--- NOTE | 2018-09-14 10:15 | PRG ---
DATE OF SERVICE: 09/14/2018 SUBJECTIVE: This morning, he is doing well. OBJECTIVE: VITAL SIGNS: Sats are 100% on room air, temperature 97, pulse 99, respirations 16, blood pressure 139/64. GENERAL: No pain or discomfort. CHEST: Decreased breath sounds. No wheezing. CARDIAC: Normal S1, S2. No gallops. ABDOMEN: No masses. IMPRESSION: Massive pulmonary emboli, status post tPA. PLAN: Pulmonary smith, he can be discharged home on Eliquis. He needs at least 6 months of anticoagulation. Follow up with the primary care physician. Job ID: [id number]
[2018-09-14 12:39] VITALS: BP 121/82; TEMP 99.3
[2018-09-14 12:57] LABS: Hemoglobin 15.4 g/dL (14.0-18.0); Platelet Count 196 thou/uL (130-400)
--- NOTE | 2018-09-15 08:08 | DIS ---
DATE OF ADMISSION: 09/10/2018 DATE OF DISCHARGE: 09/14/2018 DISCHARGE DIAGNOSES: 1. Acute respiratory failure with hypoxia. 2. Acute cor pulmonale. 3. Shock. 4. Elevated troponin. 5. Gouty arthropathy. 6. Pulmonary embolism with acute cor pulmonale. 7. Status post tPA. 8. Right heart enlargement. 9. Tachyarrhythmia. CONSULTS: Pulmonology. HOSPITAL COURSE: A 48-year-old with no significant medical history other than gouty arthropathy and hypertension as well as recent Achilles tendon rupture, status post repair, who was brought into the hospital on transfer from [facility] with acute onset of shortness of breath associated with tachyarrhythmia and diaphoresis. The patient was found to have bilateral PE with evidence of right heart overload as well as evidence of cardiopulmonary instability as evidenced by acute kidney injury and elevated liver enzymes. Pulmonary consult was obtained, and the patient subsequently had tPA and was subsequently started on tPA infusion and heparin infusion. The patient initially was managed in the ICU and was subsequently transferred to the floor with improvement in symptoms. He improved and anticoagulation was later transitioned to oral anticoagulant (Eliquis). The patient remained stable, and oxygen was weaned off and was subsequently discharged home. He is advised to be on anticoagulation at least for 6 months given that this was thought to be precipitated by recent surgery and immobilization. PHYSICAL EXAMINATION: VITAL SIGNS: Temperature 99.3, pulse 89, respiratory rate 16, SpO2 of 96% on room air, blood pressure 121/82. GENERAL: Middle-aged male, in no obvious distress. Afebrile, anicteric, acyanotic. HEENT: Normocephalic, atraumatic. Pupils are equal and reacting to light. CARDIOVASCULAR: Regular rhythm and rate with normal heart sounds, one and two. RESPIRATORY: Good air entry bilateral with no crackles or rhonchi or use of accessory muscles. GI: Abdomen is full, soft, nontender, nondistended with normal bowel sounds. EXTREMITIES: Left lower extremity cast noted. No obvious edema appreciated. NEUROLOGIC: Conscious and alert, oriented x3 with appropriate mental status. DISCHARGE MEDICATIONS: 1. Tylenol 500 mg every 6 hours p.r.n. 2. Aspirin 81 mg daily. 3. Allopurinol 200 mg b.i.d. 4. Eliquis 5 mg b.i.d. 5. Of note, lisinopril was discontinued at discharge as blood pressures are pretty much well controlled. FOLLOWUP: The patient is to follow up with the PCP in 1 week. He is also advised to follow up with the orthopedic surgeon. This discharge took more than 30 minutes. Job ID: [id number]
== END 2018-09-14 15:10 | disposition home or self-care (01) | DRG 175 ==
LOC: ERS 10:29 → CCU 13:01 → 2NO 09-11 15:58
PROVIDERS: ADMIT Internal Medicine; ATTEND Internal Medicine
DX: I26.09 Other pulmonary embolism with acute cor pulmonale (principal); J96.01 Acute respiratory failure with hypoxia; M10.9 Gout, unspecified; I10 Essential (primary) hypertension; D72.829 Elevated white blood cell count, unspecified; R74.8 Abnormal levels of other serum enzymes; I51.7 Cardiomegaly; M19.90 Unspecified osteoarthritis, unspecified site; Z79.01 Long term (current) use of anticoagulants; Z88.0 Allergy status to penicillin; Z86.73 Personal history of transient ischemic attack (TIA), and cerebral infarction without residual deficits; Z79.899 Other long term (current) drug therapy; Z92.82 Status post administration of tPA (rtPA) in a different facility within the last 24 hours prior to admission to current facility; R00.0 Tachycardia, unspecified
CPT/HCPCS: 36415; 71045; 71046; 80048; 80053; 82550; 82553; 82565; 83690; 83880; 84484; 85014; 85018; 85025; 85049; 85610; 85730; 87324; 87449; 93005; 93306; 96365; 96367; J1644; J1650; J1885